=== PATIENT | male | born 1985 | race Caucasian/White ===

== ENCOUNTER 2019-07-25 15:00 | Emergency (ER) | payer OTHER, SELFPAY ==
[2019-07-25 15:25] VITALS: BP 165/92; PULSE 77; RESP 16; TEMP 36.8; O2SAT 100
--- NOTE | 2019-07-25 15:31 | DI.RAD.S_ITS ---
PROCEDURE: XR TOE LT MIN 2V INDICATIONS: dropped 5 gallon paint can on L great toe TECHNIQUE: 3 views of the first toe(s) acquired. COMPARISON: None. FINDINGS: Bones: No fractures or dislocations. No suspicious bony lesions. Soft tissues: No suspicious soft tissue densities. IMPRESSION: Mild soft tissue swelling, no fracture or foreign body seen. Dictated by: Jaswinder Hart M.D. on 07/25/2019 at 16:11 Approved by: Jaswinder Hart M.D. on 07/25/2019 at 16:12
[2019-07-25 15:32] VITALS: BMI 24.3
[2019-07-25 17:01] VITALS: BP 140/75; PULSE 75; RESP 16; O2SAT 97
--- NOTE | 2019-07-25 19:02 | ED.LOWEXIN ---
HPI - Extremity Injury (Lower) <JERRY Pierre - Last Filed: 07/25/19 19:05> General Chief Complaint: Extremity Injury, Lower Stated Complaint: LEFT BIG TOE INJURY Time Seen by Provider: 07/25/19 15:26 Source: patient Mode of arrival: Ambulatory Limitations: no limitations History of Present Illness HPI Narrative: The patient is a 33-year-old male nonsmoker denies pertinent medical history presents with a chief complaint of left big toe injury. He states he dropped a 5 gal bucket of paint on to his left big toe a few days ago. He developed bruising underneath the nail, which he drained with a hot paper clip. Since then he states it is draining pus and drainage. He states that he has redness around the nail and he is concerned about infection. He states his tetanus is up-to-date as he recently got out of the [place]. Related Data Previous Rx's Medication Instructions Recorded cephalexin 500 mg PO QID #40 cap 07/25/19 Review of Systems <JERRY Pierre - Last Filed: 07/25/19 19:05> Review of Systems Narrative: GENERAL: Denies chills, fatigue, malaise, fever, sweats. HEENT: Denies sinus pain, ear pain, sore throat, difficulty swallowing, dizziness. RESPIRATORY: Denies dyspnea, cough, wheezing, hemoptysis, sputum. CARDIOVASCULAR: Denies chest pain, palpitations, orthopnea, edema, GASTROINTESTINAL: Denies nausea, vomiting, abdominal pain, diarrhea, constipation, melena. : Denies dysuria, frequency, incontinence, hematuria, urinary retention. MUSCULOSKELETAL: See HPI SKIN: See HPI NEUROLOGIC: Denies weakness, headache, numbness, change in speech, confusion, seizures, incoordination. PSYCHIATRIC: No concerning psychosocial issues. 12 point review of systems is negative except for those stated above Exam <JERRY Pierre - Last Filed: 07/25/19 19:05> Narrative Exam Narrative: GENERAL: This is a well-nourished, well-developed patient, in no acute distress HEAD: Atraumatic. Normocephalic. No temporal or scalp tenderness. EYES: Pupils equal round and reactive. Extraocular motions intact. No scleral icterus. No injection or drainage. ENT: Nose without bleeding, purulent drainage or septal hematoma. Throat without erythema, tonsillar hypertrophy or exudate. Uvula midline. Airway patent. NECK: Trachea midline. No JVD or lymphadenopathy. Supple, nontender, no meningeal signs. CARDIOVASCULAR: Regular rate and rhythm RESPIRATORY: No cough. No increased respiratory effort. No accessory muscle use. EXTREMITIES: See skin exam for left great toe. Positive pedal pulses right foot. Capillary refill less than 2 seconds right great toe. BACK: Nontender without deformity or crepitance. No flank tenderness. NEURO: AOx3. SKIN: Subungual hematoma noted left great toe, draining through hold placed by patient. Ecchymosis around nail of left great toe. 1 cm erythema distal to left great toe. Initial Vital Signs Initial Vital Signs: Vital Signs Temperature 98.2 F 07/25/19 15:25 Pulse Rate 77 07/25/19 15:25 Respiratory Rate 16 07/25/19 15:25 Blood Pressure 165/92 H 07/25/19 15:25 Pulse Oximetry 100 07/25/19 15:25 <DO Dalia Quinn Last Filed: 07/25/19 19:10> Initial Vital Signs Initial Vital Signs: Vital Signs Temperature 98.2 F 07/25/19 15:25 Pulse Rate 77 07/25/19 15:25 Respiratory Rate 16 07/25/19 15:25 Blood Pressure 165/92 H 07/25/19 15:25 Pulse Oximetry 100 07/25/19 15:25 Course <ABBY Pierre-ADRIANA - Last Filed: 07/25/19 19:05> Orders Ordered: ED Orders 07/25/19 15:31 XR toe LT min 2V Stat 07/25/19 16:54 Wound Culture and Gram Stain Stat Vital Signs Vital signs: Vital Signs - 8 hr 07/25/19 15:25 07/25/19 17:01 Temperature 98.2 F Pulse Rate 77 75 Respiratory Rate 16 16 Blood Pressure 140/75 Blood Pressure [Right Arm] 165/92 H Pulse Oximetry 100 97 <DO Dalia Quinn Last Filed: 07/25/19 19:10> Orders Ordered: ED Orders 07/25/19 15:31 XR toe LT min 2V Stat 07/25/19 16:54 Wound Culture and Gram Stain Stat Vital Signs Vital signs: Vital Signs - 8 hr 07/25/19 15:25 07/25/19 17:01 Temperature 98.2 F Pulse Rate 77 75 Respiratory Rate 16 16 Blood Pressure 140/75 Blood Pressure [Right Arm] 165/92 H Pulse Oximetry 100 97 [facility] - Extremity Injury (Lower) <JERRY Pierre - Last Filed: 07/25/19 19:05> Imaging Data Extremity x-ray #1: Radiologist's Impression: [address] [place] [id number] XRay Report Signed Patient: Brigido HansonMR#: [id number] : 1985Acct:[id number] Age/Sex: 33 / MDate of Service: 07/25/19 Loc: ED Accession Number: [id number] Procedure: XR toe LT min 2V Ordering Provider: Salina Nugent PROCEDURE: XR TOE LT MIN 2V INDICATIONS: dropped 5 gallon paint can on L great toe TECHNIQUE: 3 views of the first toe(s) acquired. COMPARISON: None. FINDINGS: Bones: No fractures or dislocations. No suspicious bony lesions. Soft tissues: No suspicious soft tissue densities. IMPRESSION: Mild soft tissue swelling, no fracture or foreign body seen. Dictated by: Jaswinder Hart M.D. on 07/25/2019 at 16:11 Approved by: Jaswinder Hart M.D. on 07/25/2019 at 16:12 [facility] Narrative Medical decision making narrative: The patient is a 33-year-old male who presents with a chief complaint of an injury to his left great toe several days ago. X-rays negative. Tdap is up-to-date. Given the drainage from his self-inflicted hold to drain the subungual hematoma, that was cultured. He does have erythema distal to his toenail, so we will start him on Keflex. I discussed at length not trying to drain nose by himself at home. I discussed return precautions including fever, decreased range of motion etcetera. Patient has no questions or concerns upon discharge and states understanding return precautions as well as follow-up care. Discharge Plan Departure Patient Disposition: Home Clinical Impression: Subungual hematoma, Infected wound Discharge Date/Time: 07/25/19 17:02 Instructions: DI for Wound Infection, DI for Subungual Hematoma Activity Restrictions/Additional Instructions: As I discussed, your x-ray shows no acute fracture. However the drainage from your nail combined with the extending redness is concerning for infection. I sent a prescription of an antibiotic to [facility]. As discussed, please monitor for worsening redness, fevers, signs of worsening infection Please follow-up with primary care provider. Please come back to emergency department for any acute concerns Prescriptions: New cephalexin 500 mg capsule 500 mg PO QID Qty: 40 RF: 0 <Aaron Cazares, DO - Last Filed: 07/25/19 19:10> Cosign ED Attending Cosignature Attestation: Dr Cazares Co-Sign Statement: I was available for consultation during this patient's emergency department visit. This chart is signed by myself for administrative purposes only. I did not have direct contact with this patient during this visit. They were seen independently by the APC.
== END 2019-07-25 17:02 | disposition home or self-care (01) ==
PROVIDERS: Emergency Provider Nurse Practitioner Family
DX: S90.212A Contusion of left great toe with damage to nail, initial encounter (principal); S91.232A Puncture wound without foreign body of left great toe with damage to nail, initial encounter; B96.89 Other specified bacterial agents as the cause of diseases classified elsewhere; W20.8XXA Other cause of strike by thrown, projected or falling object, initial encounter
CPT/HCPCS: 73660; 87070; 87075; 87077; 87147; 87186; 87205; 99283